=== PATIENT | female | born 1955 | race Caucasian/White ===

== ENCOUNTER 2020-03-08 14:55 | Emergency (ER) | payer MEDICAID ==
[~2020-03-08] VITALS: Ht 175.3 cm; Wt 122.0 kg
[2020-03-08 15:08] VITALS: BP 100/67
--- NOTE | 2020-03-08 15:17 | NUR ---
COLLIN. HANDED ON URINE CUP.
--- NOTE | 2020-03-08 16:39 | NUR ---
PATIENT W/C ASSISTED TO BED 3
--- NOTE | 2020-03-08 16:43 | NUR ---
PT BIB CAREGIVER C/O LETHARGY FOR ONE WEEK. CAREGIVER DENIES COUGH, FEVER, CP, N/V/D, LOSS OF APPETITE, SOB, OR SICK CONTACTS. PMH: DEMENTIA, MILD ID, SCHIZOPHRENIA, HLD
[2020-03-08 17:11] LABS: BASOPHILS % (AUTO) 0.6 % (0.0-2.0); EOSINOPHILS % (AUTO) 0.1 % (0.0-4.0); HEMATOCRIT 37.1 % (36-48); HEMOGLOBIN 12.5 g/dL (12.0-16.0); LYMPHOCYTES # (AUTO) 1.7 K/uL (2.5-16.5); LYMPHOCYTES % (AUTO) 30.3 % (20.5-51.1); MEAN CORPUSCULAR HEMOGLOBIN 33 pg (27-31); MEAN CORPUSCULAR HGB CONC 34 g/dL (33-37); MEAN CORPUSCULAR VOLUME 97.8 fL (80-94); MONOCYTES # (AUTO) 0.5 K/uL (0.8-1.0); NEUTROPHILS # (AUTO) 3.5 K/uL (1.8-7.7); PLATELET COUNT (AUTO) 159 K/uL (140-450); RED CELL DISTRIBUTION WIDTH 13.3 % (11.6-13.7); WHITE BLOOD COUNT (AUTO) 5.8 K/uL (4.8-10.8)
[2020-03-08 17:18] LABS: ANION GAP 9.5 (8-16); CREATININE 0.8 mg/dL (0.6-1.3); POTASSIUM 4.5 mmol/L (3.5-5.1)
[2020-03-08 17:30] LABS: ALBUMIN 3.4 g/dL (3.4-5.0); BILIRUBIN,DIRECT 0.1 mg/dL (0.0-0.3); TOTAL BILIRUBIN 0.4 mg/dL (0.0-1.0)
[2020-03-08] MEDS ORDERED: cefTRIAXone 1,000 MG in LIDOCAINE MPF 1% 2.1 ML IM ONE (17:35)
[2020-03-08] MEDS ORDERED: cefTRIAXone 1,000 MG VIAL ONE (17:39)
[2020-03-08] MEDS ORDERED: LIDOCAINE MPF 1% 5 ML ONE (17:39)
[2020-03-08 18:28] VITALS: BP 116/61
--- NOTE | 2020-03-08 18:28 | NUR ---
Patient discharged with v/s stable. Written and verbal after care instructions given and explained. Patient alert, oriented and verbalized understanding of instructions. WC assisted by caregiver to car. All questions addressed prior to discharge. ID band removed. Patient advised to follow up with PMD. Rx of Cephalexin given. Patient educated on indication of medication including possible reaction and side effects. Opportunity to ask questions provided and answered.
== END 2020-03-08 18:28 | disposition home or self-care (01) ==
LOC: MED 14:55
DX: N30.00 Acute cystitis without hematuria (principal); F03.90 Unspecified dementia, unspecified severity, without behavioral disturbance, psychotic disturbance, mood disturbance, and anxiety; F20.9 Schizophrenia, unspecified; R53.83 Other fatigue; E78.5 Hyperlipidemia, unspecified
CPT/HCPCS: 36415; 80048; 80076; 81002; 81025; 85025; 87086; 96372; 99283; J0696; J2001

== ENCOUNTER 2020-11-30 09:22 | Emergency (ER) | payer MEDICAID ==
[~2020-11-30] VITALS: Ht 167.6 cm; Wt 78.0 kg
[2020-11-30 09:39] VITALS: BP 120/67
[2020-11-30] MEDS ORDERED: ONDANSETRON 4 MG ODT PO ONE (10:40)
[2020-11-30 10:58] LABS: BASOPHILS % (AUTO) 0.2 % (0.0-2.0); HEMATOCRIT 37.4 % (36-48); HEMOGLOBIN 12.7 g/dL (12.0-16.0); LYMPHOCYTES # (AUTO) 1.4 K/uL (2.5-16.5); LYMPHOCYTES % (AUTO) 20.9 % (20.5-51.1); MEAN CORPUSCULAR HEMOGLOBIN 34 pg (27-31); MEAN CORPUSCULAR HGB CONC 34 g/dL (33-37); MEAN CORPUSCULAR VOLUME 99.3 fL (80-94); MONOCYTES # (AUTO) 0.3 K/uL (0.8-1.0); MONOCYTES % (AUTO) 5.3 % (1.7-9.3); NEUTROPHILS # (AUTO) 4.8 K/uL (1.8-7.7); NEUTROPHILS % (AUTO) 73.6 % (42.2-75.2); PLATELET COUNT (AUTO) 178 K/uL (140-450); RED BLOOD CELL COUNT(AUTO) 3.76 MIL/uL (4.20-5.40); RED CELL DISTRIBUTION WIDTH 13.8 % (11.6-13.7); WHITE BLOOD COUNT (AUTO) 6.5 K/uL (4.8-10.8)
--- NOTE | 2020-11-30 11:01 | NUR ---
CALLED NAME TWICE IN LOBBY, IN TENT AND OUTSIDE FOR MEDICATION, NO RESPONSE.
--- NOTE | 2020-11-30 11:02 | NUR ---
PT ELOPED FROM FACILITY. NAME CALLED TWICE.
[2020-11-30 11:13] LABS: APPEARANCE,URINE CLEAR (CLEAR); BILIRUBIN,URINE NEGATIVE (NEGATIVE); BLOOD, URINE NEGATIVE (NEGATIVE); COLOR,URINE YELLOW (YELLOW); LEUKOCYTE ESTERASE ,URINE 1+ (NEGATIVE); NITRITE, URINE NEGATIVE (NEGATIVE); PH,URINE 7.5 (5.0-9.0); UGLUCOSE NEGATIVE (NEGATIVE)
[2020-11-30 11:18] LABS: ALBUMIN 3.2 g/dL (3.4-5.0); ANION GAP 9.7 (8-16); CARBON DIOXIDE 29.8 mmol/L (21-32); CREATININE 0.7 mg/dL (0.6-1.3); POTASSIUM 4.5 mmol/L (3.5-5.1); RBC,URINE 0-5 /HPF (0-5); TOTAL BILIRUBIN 0.4 mg/dL (0.0-1.0); WBC,URINE 0-5 /HPF (0-5)
[2020-11-30] MEDS ORDERED: ONDA-24 PO (12:20)
[2020-11-30] MEDS ORDERED: MIRABULK PO (12:20)
--- NOTE | 2020-11-30 12:26 | NUR ---
Patient discharged with v/s stable. Written and verbal after care instructions given and explained. Patient alert, oriented and verbalized understanding of instructions. Ambulatory with steady gait. All questions addressed prior to discharge. ID band removed. Patient advised to follow up with PMD. Rx of POLYETHYLENE GLYCOL, ONDANSETRON given. Patient educated on indication of medication including possible reaction and side effects. Opportunity to ask questions provided and answered.
[2020-11-30 12:27] VITALS: BP 120/67
== END 2020-11-30 12:26 | disposition home or self-care (01) ==
LOC: MED 09:22
DX: S32.038A Other fracture of third lumbar vertebra, initial encounter for closed fracture (principal); S22.088A Other fracture of T11-T12 vertebra, initial encounter for closed fracture; S22.078A Other fracture of T9-T10 vertebra, initial encounter for closed fracture; R10.9 Unspecified abdominal pain; K59.00 Constipation, unspecified; R11.10 Vomiting, unspecified; F03.90 Unspecified dementia, unspecified severity, without behavioral disturbance, psychotic disturbance, mood disturbance, and anxiety; Z79.899 Other long term (current) drug therapy; X58.XXXA Exposure to other specified factors, initial encounter; Y93.89 Activity, other specified; Y92.89 Other specified places as the place of occurrence of the external cause; Y99.8 Other external cause status
CPT/HCPCS: 36415; 80053; 81001; 83690; 85025; 87086; 99284; Q0162